=== PATIENT | female | born 1930 | race Caucasian/White ===

== ENCOUNTER 2018-02-26 10:22 | Day surgery (SDC) | payer MEDICARE, OTHER ==
[~2018-02-26] VITALS: Ht 149.9 cm; Wt 46.8 kg
[~2018-02-26 10:22] MED LIST: ACET325 PO; AMLO5 PO; Cyclobenzaprine5 MG PO; Hydrocodone-Ap1 EA23 PO; LOSA50 PO; PANT40 PO; PENNSAID2 GM TOP; PRED20 PO
== END 2018-02-26 12:00 | disposition home or self-care (01) ==
LOC: ORSCSDS 10:22
PROVIDERS: Anesthesiology
PROC: 3E0R33Z Introduction of Anti-inflammatory into Spinal Canal, Percutaneous Approach (ICD-10-PCS; principal; 2018-02-26 11:30)
DX: M54.16 Radiculopathy, lumbar region (principal); I10 Essential (primary) hypertension; K21.9 Gastro-esophageal reflux disease without esophagitis; Z87.891 Personal history of nicotine dependence; Z79.899 Other long term (current) drug therapy
CPT/HCPCS: J1040

== ENCOUNTER 2018-06-30 09:15 | Day surgery (SDC) | payer MEDICARE, OTHER ==
[~2018-06-30] VITALS: Ht 149.9 cm; Wt 45.3 kg
--- NOTE | 2018-06-30 11:01 | NUR ---
06/30/18 11[address] 1040-WHEN PATIENT SAT UP IN BED SHE STATED THAT HER LEGS WERE NUMB. PATIENT ATTEMPTED TO STAND AND HER LEGS WERE WEAKENED AND BUCKLED SLIGHTLY THEN THE PATIENT SAT BACK DOWN. I NOTIFIED DR IRAHETA RIGHT AWAY OF THE PATIENTS STATUS. DR IRAHETA INSTRUCTED TO MONITOR THE PATIENT FOR 15-20MIN AND IF NO CHANGE LET HIM KNOW. NO FURTHER ORDERS OR DIRECTIONS WERE GIVEN AT THIS TIME.
== END 2018-06-30 11:45 | disposition home or self-care (01) ==
LOC: ORSCSDS 09:15
PROVIDERS: Anesthesiology
PROC: 3E0R33Z Introduction of Anti-inflammatory into Spinal Canal, Percutaneous Approach (ICD-10-PCS; principal; 2018-06-30 10:30)
DX: M54.16 Radiculopathy, lumbar region (principal); M96.1 Postlaminectomy syndrome, not elsewhere classified; I10 Essential (primary) hypertension; K21.9 Gastro-esophageal reflux disease without esophagitis; Z87.891 Personal history of nicotine dependence; Z79.899 Other long term (current) drug therapy
CPT/HCPCS: J1040

== ENCOUNTER → 2019-01-02 | Outpatient (CLI) | payer MEDICARE, OTHER ==
[2019-01-02 14:37] LABS: Stool Occult Bld Immuno 1 Negative (NEGATIVE)
== END | disposition home or self-care (01) ==
LOC: OLS 09:40 → LAB SHORT 09:40 → LAB FUT 01-02 15:45
PROVIDERS: Family Medicine
DX: R63.4 Abnormal weight loss (principal)
CPT/HCPCS: G0328

== ENCOUNTER 2019-05-03 08:09 | Inpatient (IN) | payer MEDICARE, OTHER ==
[~2019-05-03] VITALS: Ht 162.6 cm; Wt 43.2 kg
[~2019-05-03 08:09] MED LIST changes: +FOLI1 PO; +LIDOCAINE1 EACH TOP; +LOSARTAN POTAS100 M1 PO; +METTREX2.5 PO; +Oxycodone-Apap1 EAC3 PO; +PANTOPRAZOLE SO40 M2 PO; +PRED5 PO; +PREGABALIN25 MG PO
[2019-05-03] MEDS ORDERED: Oxycodone-Apap1 EAC3 PO (08:29)
[2019-05-03 08:48] LABS: Source, Urine Catheter
[2019-05-03 08:51] LABS: Blood, Urine 2+ (Neg); Glucose Qualitative, Urine Neg (Neg); Ketones, Urine Neg (Neg); Leukocyte Esterase, Urine 1+ (Neg); Nitrite, Urine Neg (Neg); Protein, Urine 2+ (Neg); Urobilinogen, Urine NORM (Normal)
[2019-05-03 08:56] LABS: Appearance, Urine Clear (Clear); Bilirubin, Urine 1+ (Neg); Color, Urine Yellow (P-Yellow)
[2019-05-03 09:02] LABS: Amorphous Mod (0-Heavy); Bacteria Mod /hpf; Squamous Epithelial Cells Rare /hpf (Few)
[2019-05-03 09:13] LABS: BASOPHILS ABSOLUTE AUTO 0.05 K/mm3 (0.00-0.23); BASOPHILS PERCENT AUTO 0 % (0-2); EOSINOPHILS ABSOLUTE AUTO 0.01 K/mm3 (0.00-0.68); EOSINOPHILS PERCENT AUTO 0 % (0-6); Hematocrit 42.1 % (33.0-51.0); Hemoglobin 13.4 g/dL (11.5-16.0); IMMATURE GRAN ABSOLUTE AUTO 0.06 K/mm3 (0.00-0.10); IMMATURE GRAN PERCENT AUTO 0 % (0-1); LYMPHOCYTES ABSOLUTE AUTO 1.12 K/mm3 (0.84-5.20); LYMPHOCYTES PERCENT AUTO 7 % (21-46); MONOCYTES ABSOLUTE AUTO 1.88 K/mm3 (0.16-1.47); MONOCYTES PERCENT AUTO 11 % (4-13); Mean Corpuscular HGB 33.3 pg (26.0-34.0); Mean Corpuscular HGB Conc 31.8 g/dL (31.5-36.5); Mean Corpuscular Volume 105 fL (80-100); Mean Platelet Volume 10.4 fL (9.1-12.4); NEUTROPHILS ABSOLUTE AUTO 13.72 K/mm3 (1.96-9.15); NEUTROPHILS PERCENT AUTO 81 % (41-73); Platelet Count 274 K/mm3 (150-400); RDW Coefficient Variation 13.5 % (11.7-14.2); RDW Standard Deviation 51.6 fL (35.1-46.3); Red Blood Cell Count 4.03 M/mm3 (3.80-5.20); White Blood Cell Count 16.84 K/mm3 (4.00-11.30)
[2019-05-03 09:31] LABS: Albumin, Blood 3.5 g/dL (3.4-5.0); Bilirubin, Total 0.8 mg/dL (0.1-1.0); Calcium, Blood 9.6 mg/dL (8.5-10.1); Creatinine, Blood 1.78 mg/dL (0.40-1.00); Globulin, Blood 3.4 g/dL (2.2-4.0); Potassium, Blood 4.2 mmol/L (3.5-5.5); Total Protein, Blood 6.9 g/dL (6.4-8.2)
[2019-05-03 09:32] LABS: International Normalized Ratio 0.98; Prothrombin Time Results 10.5 Sec (9.7-11.5)
[2019-05-03 10:37] LABS: Magnesium, Blood 2.3 mg/dL (1.6-2.4)
[2019-05-04 04:16] LABS: BASOPHILS ABSOLUTE AUTO 0.05 K/mm3 (0.00-0.23); BASOPHILS PERCENT AUTO 0 % (0-2); EOSINOPHILS ABSOLUTE AUTO 0.12 K/mm3 (0.00-0.68); EOSINOPHILS PERCENT AUTO 1 % (0-6); Hematocrit 30.7 % (33.0-51.0); Hemoglobin 9.6 g/dL (11.5-16.0); IMMATURE GRAN ABSOLUTE AUTO 0.13 K/mm3 (0.00-0.10); IMMATURE GRAN PERCENT AUTO 1 % (0-1); LYMPHOCYTES ABSOLUTE AUTO 1.64 K/mm3 (0.84-5.20); LYMPHOCYTES PERCENT AUTO 8 % (21-46); MONOCYTES PERCENT AUTO 6 % (4-13); Mean Corpuscular HGB 33.2 pg (26.0-34.0); Mean Corpuscular HGB Conc 31.3 g/dL (31.5-36.5); Mean Corpuscular Volume 106 fL (80-100); Mean Platelet Volume 10.8 fL (9.1-12.4); NEUTROPHILS ABSOLUTE AUTO 17.37 K/mm3 (1.96-9.15); NEUTROPHILS PERCENT AUTO 85 % (41-73); Platelet Count 213 K/mm3 (150-400); RDW Coefficient Variation 13.7 % (11.7-14.2); RDW Standard Deviation 53.7 fL (35.1-46.3); Red Blood Cell Count 2.89 M/mm3 (3.80-5.20); White Blood Cell Count 20.51 K/mm3 (4.00-11.30)
[2019-05-04 04:51] LABS: Albumin, Blood 2.4 g/dL (3.4-5.0); Albumin/Globulin Ratio 0.9 (0.8-1.8); Bun/Creatinine Ratio 19.4 (12.0-20.0); Calcium, Blood 7.6 mg/dL (8.5-10.1); Creatinine, Blood 1.24 mg/dL (0.40-1.00); Globulin, Blood 2.8 g/dL (2.2-4.0); Potassium, Blood 4.3 mmol/L (3.5-5.5); Total Protein, Blood 5.2 g/dL (6.4-8.2)
--- NOTE | 2019-05-04 07:44 | NUR ---
SHIFT SUMMARY PATIENT PLEASENT AND COOPERATIVE THROUGHOUT THE NIGHT LAST NIGHT. PATIENT ALERT AND ORIENTED AND ABLE TO MAKE HER NEEDS KNOWN. PATIENT APPEARED TO SLEEP WELL LAST NIGHT WITH NO COMPLAINTS OF PAIN OR DISCOMFORT. PATIENT ASSISTED WITH TURNS NEEDED. BEDSIDE REPORT GIVEN TO ONCOMING RN.
--- NOTE | 2019-05-04 08:35 | NUR ---
ASSUMPTION OF CARE RECEIVED PT AROUND 0715. VS TAKEN; SBP ELEVATED IN THE 160S, TEMP 101.1. PT C/O LEFT LEG PAIN FROM [place]. RETURNED TO ROOM AROUND 0810 W/ MEDS & PT C/O 10/10 CHEST PAIN WHICH SHE STATES IS NEW, PT STATES PAIN IS WORSE W/ INSPIRATION. ALSO C/O SOME MILD SOB; O2 THERAPY IN PLACE @ 2LPM, PULSE OX 99%. EKG COMPLETED AT THIS TIME, WHICH SHOWS SR 90S W/ PACS. PT ABLE TO TAKE PO PAIN MEDS. WILL REASSESS PAIN/FEVER & DISCUSS W/ MD. PT'S GRANDDAUGHTER AT BEDSIDE. BED LOCKED & IN LOWEST POSITION, CALL CHOUDHURY W/ IN REACH. WILL CONTINUE TO MONITOR.
--- NOTE | 2019-05-04 09:20 | NUR ---
REASSESSMENT PT NOW REPORTS 0/10 CHEST PAIN & DENIES ANY SOB. RESPIRATIONS EVEN & UNLABORED, NO S/S OF DISTRESS, O2 VIA NC REMAINS IN PLACE. PT ALSO REPORTS PAIN IN LEFT LEG HAS IMPROVED, NOW RATING 4/10. WILL CONTINUE TO MONITOR.
[2019-05-04 13:22] LABS: Adenovirus Not Detected (NOT DETECT); Bordetella pertussis Not Detected (NOT DETECT); Chlamydophila pneumoniae Not Detected (NOT DETECT); Coronavirus 229E Not Detected (NOT DETECT); Coronavirus HKU1 Not Detected (NOT DETECT); Coronavirus NL63 Not Detected (NOT DETECT); Coronavirus OC43 Not Detected (NOT DETECT); Human Metapneumovirus Not Detected (NOT DETECT); Human Rhinovirus/Enterovirus Not Detected (NOT DETECT); Influenza A Not Detected (NOT DETECT); Influenza A/2009-H1 Not Detected (NOT DETECT); Influenza A/H1 Not Detected (NOT DETECT); Influenza A/H3 Not Detected (NOT DETECT); Influenza B Not Detected (NOT DETECT); Mycoplasma pneumoniae Not Detected (NOT DETECT); Parainfluenza Virus 1 Not Detected (NOT DETECT); Parainfluenza Virus 2 Not Detected (NOT DETECT); Parainfluenza Virus 3 Not Detected (NOT DETECT); Parainfluenza Virus 4 Not Detected (NOT DETECT); Respiratory Syncytial Virus Not Detected (NOT DETECT)
--- NOTE | 2019-05-04 16:51 | NUR ---
SHIFT SUMMARY NO ACUTE CHANGES THROUGHOUT SHIFT FROM PRIOR NOTES. PT DENIES ANYMORE C/O OF CHEST PAIN OR SOB. CURRENTLY RESTING COMFORTABLY IN BED, NO S/S OF DISTRESS. VS STABLE; PT NO LONGER FEBRILE, MOST RECENT TEMP 98.1. PT TO CONTINUE W/ IVF & IV ABX. WILL CONTINUE TO MONITOR UNTIL END OF SHIFT.
[2019-05-05 04:05] LABS: Hematocrit 26.6 % (33.0-51.0); Hemoglobin 8.4 g/dL (11.5-16.0); Mean Corpuscular HGB 33.5 pg (26.0-34.0); Mean Corpuscular HGB Conc 31.6 g/dL (31.5-36.5); Mean Corpuscular Volume 106 fL (80-100); Mean Platelet Volume 11.2 fL (9.1-12.4); Platelet Count 190 K/mm3 (150-400); RDW Coefficient Variation 13.6 % (11.7-14.2); RDW Standard Deviation 52.2 fL (35.1-46.3); Red Blood Cell Count 2.51 M/mm3 (3.80-5.20); White Blood Cell Count 18.23 K/mm3 (4.00-11.30)
[2019-05-05 04:24] LABS: Bun/Creatinine Ratio 15.8 (12.0-20.0); Calcium, Blood 7.6 mg/dL (8.5-10.1); Creatinine, Blood 1.01 mg/dL (0.40-1.00); Potassium, Blood 4.1 mmol/L (3.5-5.5)
--- NOTE | 2019-05-05 04:29 | NUR ---
SHIFT SUMMARY: PATIENT AND [facility] C/O USE OF HEPARIN STATING THAT PATIENT HAS A RECENT AND FREQUENT HX OF GI BLEED WITH HEMORRHAGE. HGB TRENDING DOWN AND PATIENT IV SITE OOZING. MD NOTIFIED AND HEPARIN DISCONTINUED, SCD'S IN PLACE. PATIENT REMAINED NSR THIS SHIFT AND ON RA. ALL OTHER VSS, NO OTHER ISSUES NOTED, CALL LIGHT WITHIN REACH AND BED LOW AND LOCKED.
--- NOTE | 2019-05-05 08:00 | NUR ---
ASSUMPTION OF CARE RECEIVED REPORT AROUND 704. PT AAOX4. VS STABLE, NO S/S OF DISTRESS. PT DENIES ANY C/O CHEST PAIN OR SOB. PT REMAINS ON RA, PULSE OX 93%. IVF INFUSING W/ OUT DIFFICULTY. BED LOCKED & IN LOWEST POSITION, CALL CHOUDHURY W/ IN REACH. WILL CONTINUE TO MONITOR.
--- NOTE | 2019-05-05 13:12 | NUR ---
Pt. is sitting in a chair and talking withnher spouse and her brother in the room on a visit offered prayers
--- NOTE | 2019-05-05 17:15 | NUR ---
SHIFT SUMMARY NO ACUTE CHANGES THROUGHOUT SHIFT. VS STABLE. PT DENIED ANY C/O CHEST PAIN/PRESSURE OR SOB. DR. FONTAINE AWARE OF HGB DROP FROM 13.4->9.6->8.4 OVER 3 DAYS; STATES LIKELY SECONDARY TO SEPSIS. HOWEVER, WOULD LIKE TO CHECK STOOL GUAIC TO BE SAFE; NO BM THIS SHIFT, WILL PASS ALONG IN REPORT. PT RESTING IN BED COMFORTABLY. NO COMPLAINTS AT THIS TIME. WILL CONTINUE TO MONITOR UNTIL END OF SHIFT.
--- NOTE | 2019-05-05 19:15 | NUR ---
RECEIVED REPORT FROM TROY JAIMES. ASSUMED CARE OF PT. SITTING UP IN BED COMFORTABLY, IN NO ACUTE DISTRESS. DENIES ANY NEEDS AT THIS TIME, CALL LIGHT AND POSSESSIONS IN REACH, BED IN LOWEST POSITION WITH BED ALARM ACTIVATED. WILL CONTINUE TO MONITOR.
--- NOTE | 2019-05-06 06:50 | NUR ---
UPDATE: SPOKE TO DR. HOUSE REGARDING PT'S INCREASED BP AND NEED FOR AM LABS TO BE DRAWN. ORDERS RECEIVED.
--- NOTE | 2019-05-06 07:21 | NUR ---
PT RESTING IN BED COMFORTABLY, IN NO ACUTE DISTRESS. WAS MONITORED EVERY 1-2 HOURS WITH NEEDS MET. DENIES ANY NEEDS AT THIS TIME. CALL LIGHT AND POSSESSIONS IN REACH, BED ALARM ACTIVATED, REPORTED OFF TO TROY ARAUZ.
[2019-05-06 07:44] LABS: Hematocrit 29.5 % (33.0-51.0); Hemoglobin 9.2 g/dL (11.5-16.0); Mean Corpuscular HGB 32.7 pg (26.0-34.0); Mean Corpuscular HGB Conc 31.2 g/dL (31.5-36.5); Mean Corpuscular Volume 105 fL (80-100); Mean Platelet Volume 11.1 fL (9.1-12.4); Platelet Count 218 K/mm3 (150-400); RDW Coefficient Variation 13.4 % (11.7-14.2); RDW Standard Deviation 51.5 fL (35.1-46.3); Red Blood Cell Count 2.81 M/mm3 (3.80-5.20)
--- NOTE | 2019-05-06 08:00 | NUR ---
pt laying in bed, states she isnt doing very well, was up all night, has a lot of pain, can't get comfortable, lungs are tight, dim t/o, resp even and unlabored, no cough noted, is breathing a bit hard, placed her on 2 liters just for comfort for a short time, hrr, tele in place running sr, see strip, no edema noted, ppp+1, cap refill <3sec, vs stable, afebrile, iv site is clear and patent, btx4, abd flat soft nontender, voids without diff, skin c/w/d, maew, silas, call light in reach.
[2019-05-06 08:11] LABS: Anion Gap 5 mmol/L (6-16); Blood Urea Nitrogen 13 mg/dL (8-24); CO2, Blood 27 mmol/L (21-32); Calcium, Blood 8.3 mg/dL (8.5-10.1); Chloride, Blood 108 mmol/L (98-108); Creatinine, Blood 0.87 mg/dL (0.40-1.00); Glomerular Filtration Rate >60 (60-); Glucose, Blood 86 mg/dL (70-99); Potassium, Blood 3.8 mmol/L (3.5-5.5); Sodium, Blood 140 mmol/L (136-145)
--- NOTE | 2019-05-06 11:42 | NUR ---
Pt. is inn bed resting she reports doing much better encouraged andn offered prayers .
--- NOTE | 2019-05-06 12:06 | NUR ---
pt resting in bed, has been up to bsc several times, is doing ok, Dr. Vasquez was in and made her medical status. call light in reach.
--- NOTE | 2019-05-06 18:06 | NUR ---
pt resting, sleeping when she can. ambulating into the bathroom with a walker. started her on metoprolol for her high b/p, no further changes this shift. call light in reach.
--- NOTE | 2019-05-06 19:00 | NUR ---
ASSUMED CARE RECEIVED REPORT FROM TROY ARAUZ. ASSUMED CARE OF PT. RESTING IN BED COMFORTABLY, IN NO ACUTE DISTRESS. VS STABLE AT THIS TIME. TALKING ON THE PHONE TO FAMILY AT THIS TIME. CALL LIGHT AND POSSESSIONS IN REACH. WILL CONTINUE TO MONITOR.
--- NOTE | 2019-05-07 00:43 | NUR ---
SPOKE TO DR. HOUSE REGARDING PT'S ELEVATED BP READINGS. ORDERS RECEIVED.
--- NOTE | 2019-05-07 01:00 | NUR ---
UPDATE THIS RN IN ROOM ASSISTING PT TO BSC AND BACK TO BED. UPON LAYING DOWN, PT STATES "I'M FEELING CHEST PRESSURE, LIKE SOMETHING IS SITTING ON MY CHEST. AND I HAVE THIS WEIRD TINGLING FEELING IN MY TOES AND RT HAND. HOB ELEVATED, PT PLACED IN POSITION OF COMFORT. O2 APPLIED AT 2L/NC. WILL CONTINUE TO MONITOR.
--- NOTE | 2019-05-07 03:15 | NUR ---
UPDATE NO FURTHER C/O CP, PRESSURE NOTED AT THIS TIME, PT STATES IT'S IMPROVED. WILL CONTINUE TO MONITOR.
[2019-05-07 05:07] LABS: Stool Occult Blood Guaiac 1 Neg (Neg)
--- NOTE | 2019-05-07 06:29 | NUR ---
SHIFT SUMMARY: PT RESTING COMFORTABLY, NO S/S ACUTE DISTRESS NOTED AT THIS TIME, NO FURTHER C/O CP, PRESSURE OR SOB. BP STABLE. SLEPT ON AND OFF T/O NIGHT. GOOD PAIN CONTROL WITH K-PACK AND REPOSITIONING. CALL LIGHT AND POSSESSIONS IN REACH, BED ALARM ACTIVATED WILL CONTINUE TO MONITOR UNTIL REPORT GIVEN TO ONCOMING RN.
--- NOTE | 2019-05-07 08:51 | NUR ---
pt sitting up in chair working on her breakfast, a/ox3, pleasant and cooperative with care, follows commands well, denies pain this am, states she had a rough night, little sleep, lungs are clear t/o, resp even and unlabored, does have [address] this am, but does not feel it helps, sats 97%, she wanted it removed, hrr, no edema noted, ppp+2, cap refill <3sec, vs stable, afebrile, iv site to left wrist is clear and patent, btx4, abd flat soft nontender, voids without diff, skin c/w/d, maew, silas, call light in reach.
--- NOTE | 2019-05-07 10:42 | NUR ---
Pt. is sitting in a chair resting , looks tired, encouraged pt.and offered prayers .
--- NOTE | 2019-05-07 11:49 | NUR ---
medicated pt for pain in her leg, she reports this is chronic. she is resting in bed at this time, call light in reach.
--- NOTE | 2019-05-07 13:11 | NUR ---
pt reports pain down to 3/10, much better than before med was given, visitor in room, she is in chair for lunch. call light in reach.
--- NOTE | 2019-05-07 18:01 | NUR ---
pt sitting in chair reading newspaper, she states she is feeling much better, is ready to go home tomorrow. no complaints or further changes this shift. call light in reach.
[2019-05-08 04:43] LABS: BASOPHILS ABSOLUTE AUTO 0.01 K/mm3 (0.00-0.23); BASOPHILS PERCENT AUTO 0 % (0-2); EOSINOPHILS PERCENT AUTO 1 % (0-6); Hematocrit 30.6 % (33.0-51.0); Hemoglobin 9.8 g/dL (11.5-16.0); IMMATURE GRAN PERCENT AUTO 1 % (0-1); LYMPHOCYTES ABSOLUTE AUTO 1.77 K/mm3 (0.84-5.20); LYMPHOCYTES PERCENT AUTO 13 % (21-46); MONOCYTES ABSOLUTE AUTO 1.14 K/mm3 (0.16-1.47); MONOCYTES PERCENT AUTO 8 % (4-13); Mean Corpuscular HGB 32.9 pg (26.0-34.0); Mean Corpuscular Volume 103 fL (80-100); Mean Platelet Volume 10.5 fL (9.1-12.4); NEUTROPHILS ABSOLUTE AUTO 10.72 K/mm3 (1.96-9.15); NEUTROPHILS PERCENT AUTO 77 % (41-73); Platelet Count 357 K/mm3 (150-400); RDW Coefficient Variation 13.4 % (11.7-14.2); RDW Standard Deviation 50.4 fL (35.1-46.3); Red Blood Cell Count 2.98 M/mm3 (3.80-5.20); White Blood Cell Count 13.94 K/mm3 (4.00-11.30)
[2019-05-08 05:05] LABS: Alanine Aminotransfer (ALT/SGP 38 U/L (12-78); Albumin, Blood 2.7 g/dL (3.4-5.0); Albumin/Globulin Ratio 0.8 (0.8-1.8); Alk Phos 107 U/L (50-136); Anion Gap 5 mmol/L (6-16); Aspartate Aminotrans (AST/SGOT 18 U/L (12-37); Bilirubin, Total 0.5 mg/dL (0.1-1.0); Blood Urea Nitrogen 18 mg/dL (8-24); Bun/Creatinine Ratio 20.3 (12.0-20.0); CO2, Blood 29 mmol/L (21-32); Calcium, Blood 8.8 mg/dL (8.5-10.1); Chloride, Blood 103 mmol/L (98-108); Creatinine, Blood 0.89 mg/dL (0.40-1.00); Globulin, Blood 3.6 g/dL (2.2-4.0); Glomerular Filtration Rate >60 (60-); Glucose, Blood 86 mg/dL (70-99); Potassium, Blood 3.9 mmol/L (3.5-5.5); Sodium, Blood 137 mmol/L (136-145); Total Protein, Blood 6.3 g/dL (6.4-8.2)
--- NOTE | 2019-05-08 07:01 | NUR ---
SHIFT SUMMARY PATIENT PLEASENT AND COOPERATIVE THROUGHOUT THE NIGHT. PATIENT APPEARED TO SLEEP WELL LAST NIGHT. PATIENT MEDICATED FOR PAIN PER EMAR. PATIENT APPEARED TO BE ABLE TO MOVE SELF ABOUT IN BED ON HER OWN. PATIENT CURRENTLY APPEARS TO BE ASLEEP. WILL CONTINUE TO MONITOR PATIENT AND GIVE BEDSIDE REPORT TO ONCOMING RN.
--- NOTE | 2019-05-08 07:29 | NUR ---
ASSUMED PATIENT CARE. PATIENT RESTING COMFORTABLY IN BED, NO SIGNS OF ACUTE DISTRESS. WCTM.
--- NOTE | 2019-05-08 08:50 | NUR ---
PATIENT REPORT CP DURING BREAKFAST PATIENT DRANK 240 OZ OF CHOCOLATE ENSURE - REPORT CHEST HEAVINESS. PATIENT BECOME TEARFUL AND CONTINUED TO REPORT CHEST HEAVINESS. EKG PERFORMED AND SHOWN TO PROVIDER ALEX, NO NEW ORDERS AT THIS TIME. PATIENT REPORTS THAT SHE IS FEELING SLIGHTLY BETTER.
[2019-05-08] MEDS ORDERED: BENZ100A PO (11:33)
[2019-05-08] MEDS ORDERED: GUAI600T33 PO (11:33)
[2019-05-08] MEDS ORDERED: LEVFLO500 PO (11:34)
[2019-05-08] MEDS ORDERED: METO25 PO (11:34)
--- NOTE | 2019-05-08 12:30 | NUR ---
PATIENT AND PATIENT FAMILY PROVIDED WITH DISCHARGE INFORMATION REGARDING FOLLOW-UP INSTRUCTIONS, ANSWERED QUESTIONS REGARDING NEW MEDICATIONS AND PROVIDED INFO SHEETS FOR EACH MED. VERBALIZED UNDERSTANDING OF INFORMATION.
== END 2019-05-08 12:39 | disposition home or self-care (01) | DRG 871 ==
LOC: ER 08:09 → PCU 13:15
PROVIDERS: Emergency Medicine; Internal Medicine; Nurse Practitioner Acute Care; ADMIT Internal Medicine
DX: A41.9 Sepsis, unspecified organism (principal); J18.9 Pneumonia, unspecified organism; G92 Toxic encephalopathy; N17.9 Acute kidney failure, unspecified; J44.0 Chronic obstructive pulmonary disease with (acute) lower respiratory infection; R65.20 Severe sepsis without septic shock; M35.3 Polymyalgia rheumatica; D64.9 Anemia, unspecified; I10 Essential (primary) hypertension; M79.7 Fibromyalgia; Z66 Do not resuscitate; Z79.52 Long term (current) use of systemic steroids
CPT/HCPCS: 0099U; 36415; 71045; 80048; 80053; 81001; 82272; 82550; 83605; 83735; 85014; 85018; 85025; 85027; 85610; 85730; 87040; 87086; 90686; 93005; 93010; 94760; 96365; 96367; 97110; 97116; 97162; 97165; 97530; 97535; 99285-25; A9270; A9270-GY; G0008; J0360; J0456; J0696; J1644; J7030; J7050; J7120; J7512; P9612

== ENCOUNTER → 2019-08-08 | Outpatient (CLI) | payer MEDICARE, OTHER ==
[~2019-08-08] MED LIST changes: +BENZ100A PO; +GUAI600T33 PO; +LEVFLO500 PO; +METO25 PO
[2019-08-09 12:28] LABS: Stool Occult Bld Immuno 1 Negative (NEGATIVE)
== END | disposition home or self-care (01) ==
LOC: LAB 06:00 → LAB SHORT 06:00
PROVIDERS: Family Medicine
DX: Z12.11 Encounter for screening for malignant neoplasm of colon (principal); R63.4 Abnormal weight loss
CPT/HCPCS: G0328

== ENCOUNTER 2020-03-25 00:42 | Inpatient (IN) | payer MEDICARE, OTHER ==
[~2020-03-25] VITALS: Ht 149.9 cm; Wt 40.4 kg
[~2020-03-25 00:42] MED LIST changes: -PANTOPRAZOLE SO40 M2 PO; -PRED5 PO
[2020-03-25 01:53] LABS: BASOPHILS ABSOLUTE AUTO 0.02 K/mm3 (0.00-0.23); BASOPHILS PERCENT AUTO 0 % (0-2); EOSINOPHILS ABSOLUTE AUTO 0.04 K/mm3 (0.00-0.68); EOSINOPHILS PERCENT AUTO 0 % (0-6); Hemoglobin 10.9 g/dL (11.5-16.0); IMMATURE GRAN ABSOLUTE AUTO 0.07 K/mm3 (0.00-0.10); IMMATURE GRAN PERCENT AUTO 1 % (0-1); LYMPHOCYTES ABSOLUTE AUTO 0.76 K/mm3 (0.84-5.20); LYMPHOCYTES PERCENT AUTO 6 % (21-46); MONOCYTES ABSOLUTE AUTO 0.92 K/mm3 (0.16-1.47); MONOCYTES PERCENT AUTO 8 % (4-13); Mean Corpuscular HGB 32.6 pg (26.0-34.0); Mean Corpuscular HGB Conc 32.1 g/dL (31.5-36.5); Mean Corpuscular Volume 102 fL (80-100); Mean Platelet Volume 10.2 fL (9.1-12.4); NEUTROPHILS ABSOLUTE AUTO 10.34 K/mm3 (1.96-9.15); NEUTROPHILS PERCENT AUTO 85 % (41-73); Platelet Count 347 K/mm3 (150-400); RDW Coefficient Variation 13.3 % (11.7-14.2); RDW Standard Deviation 49.2 fL (35.1-46.3); Red Blood Cell Count 3.34 M/mm3 (3.80-5.20); White Blood Cell Count 12.15 K/mm3 (4.00-11.30)
[2020-03-25 01:56] LABS: Source, Urine Clean Catch
[2020-03-25 01:59] LABS: Appearance, Urine Clear (Clear); Bilirubin, Urine Neg (Neg); Blood, Urine 3+ (Neg); Color, Urine Yellow (P-Yellow); Glucose Qualitative, Urine Neg (Neg); Ketones, Urine Neg (Neg); Leukocyte Esterase, Urine 1+ (Neg); Nitrite, Urine Neg (Neg); Protein, Urine 2+ (Neg); Urobilinogen, Urine 1+ (Normal)
[2020-03-25 02:06] LABS: Bacteria Few /hpf; Red Blood Cells, Urine 0-2 /hpf (0-2); Squamous Epithelial Cells Few /hpf (Few)
[2020-03-25 02:27] LABS: Alanine Aminotransfer (ALT/SGP 1428 U/L (12-78); Albumin, Blood 3.3 g/dL (3.4-5.0); Albumin/Globulin Ratio 0.9 (0.8-1.8); Alk Phos 221 U/L (50-136); Anion Gap 7 mmol/L (6-16); Aspartate Aminotrans (AST/SGOT 2384 U/L (12-37); Bilirubin, Total 1.2 mg/dL (0.1-1.0); Blood Urea Nitrogen 25 mg/dL (8-24); Bun/Creatinine Ratio 20.8 (12.0-20.0); CO2, Blood 28 mmol/L (21-32); Calcium, Blood 9.7 mg/dL (8.5-10.1); Chloride, Blood 103 mmol/L (98-108); Globulin, Blood 3.5 g/dL (2.2-4.0); Glomerular Filtration Rate 45 (60-); Glucose, Blood 116 mg/dL (70-99); Potassium, Blood 3.9 mmol/L (3.5-5.5); Sodium, Blood 138 mmol/L (136-145); Total Protein, Blood 6.8 g/dL (6.4-8.2)
[2020-03-25 05:25] LABS: Acetaminophen, Random <2.0 ug/mL (10.0-30.0)
[2020-03-25 06:11] LABS: International Normalized Ratio 0.96; Prothrombin Time Results 10.3 Sec (9.7-11.5)
[2020-03-25] MEDS ORDERED: FOLI1 PO (11:53)
[2020-03-25] MEDS ORDERED: ERGO400 PO (16:03)
--- NOTE | 2020-03-25 18:18 | NUR ---
cooperative, a+o, able to ambulate in rm with fww, went on journey around dpt then first got walker, family and caregiver in to visit and monitor care, verified home medication
[2020-03-25 21:15] LABS: Percent Saturation 53.3 % (15.0-50.0)
--- NOTE | 2020-03-26 04:11 | NUR ---
SHIFT SUMMARY NO ACUTE CHANGES THIS SHIFT, NO C/O ANY KIND, A&O, COOPERATIVE W/CARE, ABLE TO MAKE NEEDS KNOWN, SLEPT T/O THE NIGHT & AT THIS TIME, CALL LIGHT IN REACH, WILL CONT TO MONITOR UNTIL REPORT GIVEN TO DAY RN.
[2020-03-26 05:49] LABS: Alanine Aminotransfer (ALT/SGP 751 U/L (12-78); Albumin, Blood 3.1 g/dL (3.4-5.0); Albumin/Globulin Ratio 0.9 (0.8-1.8); Alk Phos 195 U/L (50-136); Anion Gap 5 mmol/L (6-16); Aspartate Aminotrans (AST/SGOT 492 U/L (12-37); Bilirubin, Total 1.5 mg/dL (0.1-1.0); Blood Urea Nitrogen 20 mg/dL (8-24); Bun/Creatinine Ratio 19.6 (12.0-20.0); CO2, Blood 31 mmol/L (21-32); Calcium, Blood 9.2 mg/dL (8.5-10.1); Chloride, Blood 103 mmol/L (98-108); Creatinine, Blood 1.02 mg/dL (0.40-1.00); Globulin, Blood 3.5 g/dL (2.2-4.0); Glomerular Filtration Rate 54 (60-); Glucose, Blood 90 mg/dL (70-99); Potassium, Blood 3.9 mmol/L (3.5-5.5); Sodium, Blood 139 mmol/L (136-145); Total Protein, Blood 6.6 g/dL (6.4-8.2)
[2020-03-26 06:02] LABS: Acetaminophen, Random <2.0 ug/mL (10.0-30.0)
--- NOTE | 2020-03-26 09:01 | NUR ---
POA REQUESTED THAT PREDNISONE STAY AT 10, DR STATED THAT IT TENDED TO HAVE NEGATIVE EFFECTS, PT ACKNOWLEGED BUT REQUESTED THAT HER DOSE BE CHANGED, AGREED TO DISCUSS IT WITH PCP JOSE, NOW ORDER SENT TO PHARMACY AND PROVIDED TO PT, PT UP TO BATHROOM WITH SBA AND WALKER, GETTING DRESSED, ACKNOWLEGED THAT HAD STATED SHE SHOULD SEE A SPECIALIST TODAY BUT WANTS TO GET DRESSED SO SHE IS COMFORTABLE UNTIL THEN, WILL CONTINUE TO MONITOR AND TREAT, A+O, call light in reach, infusing, rm air, denies pain, states she is feeling much better than when she came in.
--- NOTE | 2020-03-26 10:29 | NUR ---
call light in reach, up to bathroom with sba and fww, enjoying talking to family on phone, states she was able to sleep last night, awaiting consultation prior to dc, will continue to monitor and treat
--- NOTE | 2020-03-26 11:15 | NUR ---
apprenticeship consultant came in and discussed test results which were improving, recommended against a biopsy due to improved test and pt age, asked her to make an appointment to see him in his clinic in 2 weeks, and to follow up with her pcp in 2-3 days for further tests, discussed possible causes and suggested it could be a medication which had been stopped upon arrival, pt thanked apprenticeship consultant for time and information, nurse reviewed converation with pt, will try to make apointments but contacting persons is challenging on weekends
--- NOTE | 2020-03-26 15:48 | NUR ---
DISCHARGE:escorted pt in a wc, down to family car, repeated dc information for caregiver who picked pt up, pt was a+o, transfered to front seat with no problems, prior to dc REVIEWED: stay, medications, dc instructions, need for follow up appointments, removed iv
[2020-03-27 00:08] LABS: HBSAG SCREEN Negative (Negative); HEP A AB, IGM Negative (Negative); HEP B CORE AB, IGM Negative (Negative); HEP C VIRUS AB <0.1 (0.0-0.9)
[2020-03-27 06:08] LABS: CERULOPLASMIN 21.9 mg/dL (19.0-39.0)
[2020-03-27 08:08] LABS: HBSAG SCREEN Negative (Negative); HEP B CORE AB, TOT Negative (Negative); HEP C VIRUS AB 0.1 (0.0-0.9)
[2020-03-28 14:12] LABS: IMMUNOGLOBULIN G, QN, SERUM 760 mg/dL (586-1602)
[2020-03-30 06:09] LABS: HSV-1 DNA Negative (Negative); HSV-2 DNA Negative (Negative)
== END 2020-03-26 15:22 | disposition home or self-care (01) | DRG 948 ==
LOC: ER 00:42 → MEDS 05:13 → ERHOLD 05:13 → MEDS 14:40
PROVIDERS: Emergency Medicine; Internal Medicine; Student in an Organized Health Care Education/Training Program; ADMIT Family Medicine
DX: R74.01 Elevation of levels of liver transaminase levels (principal); R65.10 Systemic inflammatory response syndrome (SIRS) of non-infectious origin without acute organ dysfunction; N17.9 Acute kidney failure, unspecified; M35.3 Polymyalgia rheumatica; I12.9 Hypertensive chronic kidney disease with stage 1 through stage 4 chronic kidney disease, or unspecified chronic kidney disease; N18.30 Chronic kidney disease, stage 3 unspecified; M79.7 Fibromyalgia; D64.9 Anemia, unspecified; J44.9 Chronic obstructive pulmonary disease, unspecified; R82.90 Unspecified abnormal findings in urine; Z66 Do not resuscitate; Z88.5 Allergy status to narcotic agent; Z88.8 Allergy status to other drugs, medicaments and biological substances; Z79.899 Other long term (current) drug therapy; Z79.891 Long term (current) use of opiate analgesic; Z79.52 Long term (current) use of systemic steroids
CPT/HCPCS: 36415; 74176; 76705; 80053; 80074; 81001; 82103; 82390; 82550; 82728; 82787; 83516; 83540; 83550; 83605; 83690; 83880; 85025; 85610; 85651; 86038; 86317; 86704; 86708; 86803; 87040; 87077; 87086; 87186; 87340; 87496; 87529; 87798; 93005; 93010; 97110; 97161; 99285-25; A9270; G0480; J0696; J7512

== ENCOUNTER 2020-05-18 08:44 | Inpatient (IN) | payer MEDICARE, OTHER ==
[~2020-05-18] VITALS: Ht 149.9 cm; Wt 42.1 kg
[~2020-05-18 08:44] MED LIST changes: +ERGO400 PO
[2020-05-18 10:27] LABS: BASOPHILS ABSOLUTE AUTO 0.06 K/mm3 (0.00-0.23); BASOPHILS PERCENT AUTO 0 % (0-2); EOSINOPHILS ABSOLUTE AUTO 0.02 K/mm3 (0.00-0.68); EOSINOPHILS PERCENT AUTO 0 % (0-6); IMMATURE GRAN ABSOLUTE AUTO 0.19 K/mm3 (0.00-0.10); IMMATURE GRAN PERCENT AUTO 1 % (0-1); LYMPHOCYTES ABSOLUTE AUTO 1.26 K/mm3 (0.84-5.20); LYMPHOCYTES PERCENT AUTO 4 % (21-46); MONOCYTES ABSOLUTE AUTO 2.14 K/mm3 (0.16-1.47); MONOCYTES PERCENT AUTO 7 % (4-13); Mean Corpuscular HGB 32.5 pg (26.0-34.0); Mean Corpuscular HGB Conc 32.4 g/dL (31.5-36.5); Mean Corpuscular Volume 101 fL (80-100); Mean Platelet Volume 10.3 fL (9.1-12.4); NEUTROPHILS ABSOLUTE AUTO 25.69 K/mm3 (1.96-9.15); NEUTROPHILS PERCENT AUTO 88 % (41-73); Platelet Count 390 K/mm3 (150-400); RDW Coefficient Variation 12.9 % (11.7-14.2); RDW Standard Deviation 46.9 fL (35.1-46.3); Red Blood Cell Count 3.38 M/mm3 (3.80-5.20); White Blood Cell Count 29.36 K/mm3 (4.00-11.30)
[2020-05-18 10:50] LABS: Albumin, Blood 3.1 g/dL (3.4-5.0); Albumin/Globulin Ratio 0.9 (0.8-1.8); Bilirubin, Total 2.1 mg/dL (0.1-1.0); Bun/Creatinine Ratio 17.9 (12.0-20.0); Creatinine, Blood 1.4 mg/dL (0.40-1.00); Globulin, Blood 3.6 g/dL (2.2-4.0); Potassium, Blood 4.7 mmol/L (3.5-5.5); Total Protein, Blood 6.7 g/dL (6.4-8.2)
[2020-05-18 10:58] LABS: Troponin I 0.063 ng/mL (0.000-0.040)
[2020-05-18] MEDS ORDERED: PRED5 PO (13:06)
[2020-05-18] MEDS ORDERED: CARBIDOPA-LEVO1 EA21 PO (13:06)
[2020-05-18] MEDS ORDERED: PANTOPRAZOLE SO40 M2 PO (13:07)
[2020-05-18] MEDS ORDERED: LOSA50 PO (13:07)
[2020-05-18 15:27] LABS: Influenza A, PCR NEGATIVE (NEGATIVE); Influenza B, PCR NEGATIVE (NEGATIVE); Resp Syncytial Virus, PCR NEGATIVE (NEGATIVE); SARS-Cov-2 (COVID-19) PCR, MMC NEGATIVE (NEGATIVE)
--- NOTE | 2020-05-18 19:17 | NUR ---
GRANDDAUGHTER XENIA TRUJILLO [phone], REPORTS PATIENT HAS HX OF MULTIPLE GI BLEEDS - DOES NOT WANT PROPHYLACTIC ANTICOAGULANT USED.
--- NOTE | 2020-05-18 19:59 | NUR ---
SHIFT SUMMARY PT A&OX2-3, PLEASANT & COOPERATIVE, NPO, DENIED N&V, DENIED PAIN, IV 20G LAC. GRANDDAUGHTER XENIA TRUJILLO WAS IN ROOM WITH ANES DR SOL AND DR MARTE. GRANDDAUGHTER REPORTS PT HAS HX OF MULT GI BLEEDS - NO ANTICOAGS TO BE GIVEN. REPORT GIVEN TO MIGUEL SIMMONS.
--- NOTE | 2020-05-18 21:37 | NUR ---
ICU RECOVERY: PT ARRIVED TO UNIT VIA STRETCHER, ON 10L OF 02 VIA NON-REBREATHER. 2049: PT RESPONDS TO VERBAL AND PAINFUL STIMULI. UNABLE TO COUGH AND DEEP BREATH. RESPONDS TO SOME COMMANDS. ABLE TO MOVE BILAT UPPER EXTREMITIES. BILAT HAND TREMOR NOTED. SIT WITH HR IN THE 110'S . 2109: PT ABLE TO OPEN EYES, RESPONDS TO YES/NO QUESTIONS, FOLLOWS COMMANDS. IS ORIENTED TO SELF, UNABLE TO STATE YEAR/PLACE AND TIME. STS IT IS 1987. PT PLACED ON 5L OF 02 VIA NC, SPO2 ABOVE 90% RR 17, UNLABORED. PT IS ABLE TO COUGH AND DEEP BREATH. PT IS MOVING ALL EXTREMITES . DENIES N/V AT THIS TIME. BP STABLE. PT STS "YES" TO PAIN 2039: PT GIVEN 25MCG FENTANYL, WITH GOOD EFFECT. PT ON 2L OF O2 VIA NC, RR 16, NO RESP DISTRESS NOTED, SPO2 94% BP CONTINUES TO BE STABLE. SURGICAL SITE FREE FROM SIGNS OF BLEEDING, NO SWELLING NOTED. WILL CALL SURGICAL FLOOR WITH REPORT.
--- NOTE | 2020-05-18 21:56 | NUR ---
CALLED TO MIGUEL SIMMONS, REPORT GIVEN. WILL TRANSFER PT SHORTLY.
--- NOTE | 2020-05-18 22:46 | NUR ---
PT BACK TO ROOM 231 FROM ICU RECOVERY. PT IS A/O X3-4. 2X ASSIST WITH FWW AND GAIT BELT UP TO BSC. PT VOIDED. ATTENS PLACED AND MEPILEX PLACED TO BOTTOM FOR REDNESS. PT ORIENTED TO ROOM AND CALL LIGHT WELL SAFETY MEASURES. REPORTS PAIN IS WELL MANAGED AT THIS TIME. GAUZE AND TEGADERM APPLIED TO RIGHT LOWER LAP SITE FOR OOZING.
--- NOTE | 2020-05-19 05:02 | NUR ---
SHIFT SUMMARY PT HAS BEEN A/O X3-4; FORGETFUL - BED ALARM ON. 2X ASSIST TO GET OOB WITH FWW AND GAIT BELT. USING BSC; VOIDING. PT REPORTS PAIN MANAGED WITH TYLENOL PER ORDERS. IV FLUIDS INFUSING OVERNIGHT. TOLERATING CLEAR LIQUIDS W/O NAUSEA. USING 1L O2 NC TO MAINTAIN O2 SAT ABOVE 92%. GAUZE/TEGADERM APPLIED TO RIGHT LOWER LAP SITE FOR OOZING. OTHERWISE INCISIONS HAVE BEEN CDI. PT RESTING IN BED AT THIS TIME, CALL LIGHT IN REACH.
[2020-05-19 06:16] LABS: BASOPHILS ABSOLUTE AUTO 0.07 K/mm3 (0.00-0.23); BASOPHILS PERCENT AUTO 0 % (0-2); LYMPHOCYTES ABSOLUTE AUTO 0.46 K/mm3 (0.84-5.20); LYMPHOCYTES PERCENT AUTO 1 % (21-46); MONOCYTES ABSOLUTE AUTO 0.91 K/mm3 (0.16-1.47); MONOCYTES PERCENT AUTO 3 % (4-13); Mean Corpuscular HGB 32.7 pg (26.0-34.0); Mean Corpuscular HGB Conc 32.3 g/dL (31.5-36.5); Mean Corpuscular Volume 101 fL (80-100); Mean Platelet Volume 10.2 fL (9.1-12.4); Platelet Count 312 K/mm3 (150-400); RDW Coefficient Variation 13.1 % (11.7-14.2); RDW Standard Deviation 48.8 fL (35.1-46.3); Red Blood Cell Count 3.06 M/mm3 (3.80-5.20); White Blood Cell Count 31.85 K/mm3 (4.00-11.30)
[2020-05-19 06:24] LABS: EOSINOPHILS PERCENT AUTO 0 % (0-6); IMMATURE GRAN ABSOLUTE AUTO 1.09 K/mm3 (0.00-0.10); IMMATURE GRAN PERCENT AUTO 3 % (0-1); NEUTROPHILS ABSOLUTE AUTO 29.32 K/mm3 (1.96-9.15); NEUTROPHILS PERCENT AUTO 92 % (41-73)
[2020-05-19 06:33] LABS: Albumin, Blood 2.6 g/dL (3.4-5.0); Albumin/Globulin Ratio 0.8 (0.8-1.8); Bilirubin, Total 3.6 mg/dL (0.1-1.0); Bun/Creatinine Ratio 16.8 (12.0-20.0); Calcium, Blood 8.3 mg/dL (8.5-10.1); Creatinine, Blood 1.25 mg/dL (0.40-1.00); Globulin, Blood 3.2 g/dL (2.2-4.0); Potassium, Blood 4.7 mmol/L (3.5-5.5); Total Protein, Blood 5.8 g/dL (6.4-8.2)
--- NOTE | 2020-05-19 07:39 | NUR ---
pt wakes to verbal stimuli min abd pain pt denies nausea no flatus active bt's x4 sched for [facility] this am at 0930
--- NOTE | 2020-05-19 08:51 | NUR ---
DR MARTE BY TO SEE PT
--- NOTE | 2020-05-19 11:05 | NUR ---
DR CARPIO BY TO SEE PT
--- NOTE | 2020-05-19 11:42 | NUR ---
dr moe by to see pt talked with kathie at [facility] at this time dr moe aware
--- NOTE | 2020-05-19 14:16 | NUR ---
pt had extra large loose bm
--- NOTE | 2020-05-19 16:11 | NUR ---
DR CARPIO CALLED EARLIER CALLED [facility] AWAITING S[facility]Y OR ROSSA[facility] TALKED TO PT AWAITING A CALL BACK
--- NOTE | 2020-05-19 18:18 | NUR ---
RISHI TRANSPORT TO [facility]
== END 2020-05-19 18:20 | disposition short-term general hospital (02) | DRG 853 ==
LOC: ER 08:44 → SURS 16:01
PROVIDERS: Emergency Medicine; Surgery; ADMIT Internal Medicine
PROC: BF532Z0 Other Imaging of Gallbladder and Bile Ducts using Fluorescing Agent, Intraoperative (ICD-10-PCS; 2020-05-18)
PROC: 0FT44ZZ Resection of Gallbladder, Percutaneous Endoscopic Approach (ICD-10-PCS; principal; 2020-05-18 19:15)
DX: A41.9 Sepsis, unspecified organism (principal); I21.A1 Myocardial infarction type 2; N17.9 Acute kidney failure, unspecified; K80.43 Calculus of bile duct with acute cholecystitis with obstruction; R65.20 Severe sepsis without septic shock; N18.2 Chronic kidney disease, stage 2 (mild); I12.9 Hypertensive chronic kidney disease with stage 1 through stage 4 chronic kidney disease, or unspecified chronic kidney disease; Z20.822 Contact with and (suspected) exposure to COVID-19; J44.9 Chronic obstructive pulmonary disease, unspecified; M35.3 Polymyalgia rheumatica; M06.9 Rheumatoid arthritis, unspecified; G20 Parkinson's disease; K21.9 Gastro-esophageal reflux disease without esophagitis; M81.0 Age-related osteoporosis without current pathological fracture; M19.90 Unspecified osteoarthritis, unspecified site; Z87.11 Personal history of peptic ulcer disease; Z87.891 Personal history of nicotine dependence
CPT/HCPCS: 0241U; 36415; 74177; 74181; 74300; 76705; 80053; 83605; 83690; 84484; 85025; 87040; 88304; 93005; 93010; 96365-59; 96375; 99285-25; A9270; C1729; J1100; J1610; J1720; J2370; J2405; J2543; J2704; J3010; J7030; J7120; Q9967

== ENCOUNTER → 2020-05-24 | Outpatient (CLI) | payer MEDICARE, OTHER ==
[~2020-05-24] MED LIST changes: +CARBIDOPA-LEVO1 EA21 PO; +Cipro500 MG PO; +HYDR1TAB94 PO; +K-Dur10 MEQ PO; +Lasix20 MG PO; +METOPROLOL TART25 MG PO; +PANTOPRAZOLE SO40 M2 PO; +PRED5 PO; +TRAM50 PO; +Zithromax250 MG PO
== END | disposition home or self-care (01) ==
LOC: LAB SHORT 17:45 → LAB 17:45
DX: R35.0 Frequency of micturition (principal)
CPT/HCPCS: 87086

== ENCOUNTER 2020-05-25 06:32 | Emergency (ER) | payer MEDICARE, OTHER ==
[~2020-05-25] VITALS: Ht 149.9 cm; Wt 43.1 kg
[~2020-05-25 06:32] MED LIST changes: -Cipro500 MG PO; -HYDR1TAB94 PO; -K-Dur10 MEQ PO; -Lasix20 MG PO; -METOPROLOL TART25 MG PO; -TRAM50 PO; -Zithromax250 MG PO
[2020-05-25] MEDS ORDERED: TRAM50 PO (06:45)
[2020-05-25] MEDS ORDERED: Cipro500 MG PO (06:45)
[2020-05-25] MEDS ORDERED: METOPROLOL TART25 MG PO (06:45)
[2020-05-25 06:57] LABS: Source, Urine Voided
[2020-05-25 07:00] LABS: Bilirubin, Urine Neg (Neg); Blood, Urine Neg (Neg); Glucose Qualitative, Urine Neg (Neg); Ketones, Urine Neg (Neg); Leukocyte Esterase, Urine Neg (Neg); Nitrite, Urine Neg (Neg); Protein, Urine Neg (Neg); Urobilinogen, Urine NORM (Normal)
[2020-05-25 07:00] LABS: BASOPHILS ABSOLUTE AUTO 0.06 K/mm3 (0.00-0.23); BASOPHILS PERCENT AUTO 1 % (0-2); EOSINOPHILS ABSOLUTE AUTO 0.33 K/mm3 (0.00-0.68); EOSINOPHILS PERCENT AUTO 3 % (0-6); Hematocrit 32.7 % (33.0-51.0); Hemoglobin 10.7 g/dL (11.5-16.0); IMMATURE GRAN ABSOLUTE AUTO 0.27 K/mm3 (0.00-0.10); IMMATURE GRAN PERCENT AUTO 2 % (0-1); LYMPHOCYTES ABSOLUTE AUTO 2.33 K/mm3 (0.84-5.20); LYMPHOCYTES PERCENT AUTO 20 % (21-46); MONOCYTES ABSOLUTE AUTO 1.09 K/mm3 (0.16-1.47); MONOCYTES PERCENT AUTO 9 % (4-13); Mean Corpuscular HGB 32.3 pg (26.0-34.0); Mean Corpuscular HGB Conc 32.7 g/dL (31.5-36.5); Mean Corpuscular Volume 99 fL (80-100); Mean Platelet Volume 10.1 fL (9.1-12.4); NEUTROPHILS ABSOLUTE AUTO 7.55 K/mm3 (1.96-9.15); NEUTROPHILS PERCENT AUTO 65 % (41-73); Platelet Count 370 K/mm3 (150-400); RDW Coefficient Variation 12.8 % (11.7-14.2); RDW Standard Deviation 45.8 fL (35.1-46.3); Red Blood Cell Count 3.31 M/mm3 (3.80-5.20); White Blood Cell Count 11.63 K/mm3 (4.00-11.30)
[2020-05-25 07:01] LABS: Appearance, Urine Clear (Clear); Color, Urine Pale Yellow (P-Yellow)
[2020-05-25 07:16] LABS: Troponin I 0.021 ng/mL (0.000-0.040)
[2020-05-25 07:17] LABS: Albumin, Blood 2.8 g/dL (3.4-5.0); Albumin/Globulin Ratio 0.8 (0.8-1.8); Bilirubin, Total 0.8 mg/dL (0.1-1.0); Bun/Creatinine Ratio 8.4 (12.0-20.0); Creatinine, Blood 0.96 mg/dL (0.40-1.00); Globulin, Blood 3.7 g/dL (2.2-4.0); Potassium, Blood 3.3 mmol/L (3.5-5.5); Total Protein, Blood 6.5 g/dL (6.4-8.2)
[2020-05-25] MEDS ORDERED: K-Dur10 MEQ PO (10:22)
[2020-05-25] MEDS ORDERED: Lasix20 MG PO (10:22)
== END 2020-05-25 11:15 | disposition home or self-care (01) ==
LOC: ER 06:32
PROVIDERS: Emergency Medicine
DX: I11.0 Hypertensive heart disease with heart failure (principal); I50.9 Heart failure, unspecified; J44.9 Chronic obstructive pulmonary disease, unspecified; Z79.52 Long term (current) use of systemic steroids; Z79.899 Other long term (current) drug therapy; Z88.5 Allergy status to narcotic agent
CPT/HCPCS: 36415; 71045; 80053; 81003; 83880; 84484; 85025; 93005; 93010; 96374; 96375; 99285-25; A9270; J1940; J2405; J7512

== ENCOUNTER 2020-09-17 13:12 | Emergency (ER) | payer MEDICARE, OTHER ==
[~2020-09-17] VITALS: Ht 149.9 cm; Wt 44.5 kg
[~2020-09-17 13:12] MED LIST changes: +Cipro500 MG PO; +K-Dur10 MEQ PO; +Lasix20 MG PO; +METOPROLOL TART25 MG PO; +TRAM50 PO
[2020-09-17 13:45] LABS: BASOPHILS ABSOLUTE AUTO 0.02 K/mm3 (0.00-0.23); BASOPHILS PERCENT AUTO 0 % (0-2); EOSINOPHILS ABSOLUTE AUTO 0.05 K/mm3 (0.00-0.68); EOSINOPHILS PERCENT AUTO 0 % (0-6); Hemoglobin 11.4 g/dL (11.5-16.0); IMMATURE GRAN ABSOLUTE AUTO 0.05 K/mm3 (0.00-0.10); IMMATURE GRAN PERCENT AUTO 0 % (0-1); LYMPHOCYTES ABSOLUTE AUTO 1.28 K/mm3 (0.84-5.20); LYMPHOCYTES PERCENT AUTO 10 % (21-46); MONOCYTES ABSOLUTE AUTO 0.49 K/mm3 (0.16-1.47); MONOCYTES PERCENT AUTO 4 % (4-13); Mean Corpuscular HGB 31.8 pg (26.0-34.0); Mean Corpuscular HGB Conc 31.7 g/dL (31.5-36.5); Mean Corpuscular Volume 100 fL (80-100); NEUTROPHILS PERCENT AUTO 85 % (41-73); Platelet Count 342 K/mm3 (150-400); Red Blood Cell Count 3.59 M/mm3 (3.80-5.20); White Blood Cell Count 12.39 K/mm3 (4.00-11.30)
[2020-09-17 14:09] LABS: Alanine Aminotransfer (ALT/SGP 18 U/L (12-78); Albumin, Blood 3.3 g/dL (3.4-5.0); Albumin/Globulin Ratio 0.9 (0.8-1.8); Alk Phos 53 U/L (50-136); Anion Gap 6 mmol/L (6-16); Aspartate Aminotrans (AST/SGOT 18 U/L (12-37); Bilirubin, Total 0.7 mg/dL (0.1-1.0); Blood Urea Nitrogen 16 mg/dL (8-24); Bun/Creatinine Ratio 15.5 (12.0-20.0); CO2, Blood 29 mmol/L (21-32); Calcium, Blood 8.9 mg/dL (8.5-10.1); Chloride, Blood 102 mmol/L (98-108); Creatinine, Blood 1.03 mg/dL (0.40-1.00); Globulin, Blood 3.6 g/dL (2.2-4.0); Glomerular Filtration Rate 51 (60-); Glucose, Blood 174 mg/dL (70-99); Potassium, Blood 3.9 mmol/L (3.5-5.5); Sodium, Blood 137 mmol/L (136-145); Total Protein, Blood 6.9 g/dL (6.4-8.2); Troponin I <0.015 ng/mL (0.000-0.040)
[2020-09-17] MEDS ORDERED: Zithromax250 MG PO (15:48)
[2020-09-17] MEDS ORDERED: HYDR1TAB94 PO (15:48)
== END 2020-09-17 17:10 | disposition home or self-care (01) ==
LOC: ER 13:12
PROVIDERS: Physician Assistant
DX: J18.9 Pneumonia, unspecified organism (principal); R09.1 Pleurisy; I10 Essential (primary) hypertension; Z88.5 Allergy status to narcotic agent; Z79.899 Other long term (current) drug therapy; Z87.891 Personal history of nicotine dependence
CPT/HCPCS: 36415; 71046; 80053; 84484; 85025; 93005; 93010; 96365; 99284-25; A9270; J0456; J7050

== ENCOUNTER → 2022-02-12 | Outpatient (CLI) | payer MEDICARE, OTHER ==
[~2022-02-12] MED LIST changes: +CEPH500 PO; +HYDR1TAB94 PO; +Zithromax250 MG PO
== END ==
LOC: LAB SHORT 10:45 → LAB 10:45
DX: R82.90 Unspecified abnormal findings in urine (principal)
CPT/HCPCS: 87086